=== PATIENT | female | born 2000 | race Two or more races ===

== ENCOUNTER 2022-05-28 08:48 | Emergency (ER) | payer OTHER ==
[2022-05-28 08:52] VITALS: BP 125/86; PULSE 94; RESP 18; TEMP 98.1; BMI 23.3
[2022-05-28] MEDS ORDERED: IBUPROFEN 600 MG TABLET (FP) PO ONE ×2 (09:28→09:34)
[2022-05-28] MEDS ORDERED: ACETAMINOPHEN 500 MG TABLET (FP) PO ONE (09:28)
[2022-05-28] MEDS ORDERED: ACETAMINOPHEN 500 MG TABLET (FP) ONE (09:35)
== END 2022-05-28 10:54 | disposition home or self-care (01) ==
LOC: JER 08:48
DX: M25.561 Pain in right knee (principal)
CPT/HCPCS: 73562-TC-RT-FY; 99283-25